=== PATIENT | male | born 1960 | race Caucasian/White ===

== ENCOUNTER 2019-02-13 22:45 | Inpatient (IN) | payer MEDICARE, MEDICAID ==
[~2019-02-13] VITALS: Ht 177.8 cm; Wt 102.5 kg
--- NOTE | 2019-02-13 23:00 | NUR ---
Dr. Suazo at bedside for MSE.
[2019-02-13] MEDS ORDERED: KETAMINE HCL 500 MG/10 ML INJ IM ONE (23:15)
[2019-02-13] MEDS ORDERED: KETAMINE HCL 500 MG/10 ML INJ ONE (23:18)
[2019-02-13 23:32] LABS: BASOPHILS % (AUTO) 0.5 % (0.0-2.0); EOSINOPHILS % (AUTO) 0.4 % (0.0-7.0); HEMATOCRIT 41.5 % (36.7-47.1); LYMPHOCYTES # (AUTO) 1.8 K/uL (20.0-40.0); LYMPHOCYTES % (AUTO) 20.6 % (20.5-51.5); MEAN CORPUSCULAR HEMOGLOBIN 28.3 uug (23.8-33.4); MEAN CORPUSCULAR HGB CONC 34 g/dL (32.5-36.3); MEAN CORPUSCULAR VOLUME 84.2 fL (73.0-96.2); MONOCYTES # (AUTO) 0.9 K/uL (2.0-10.0); MONOCYTES % (AUTO) 10.5 % (0.0-11.0); PLATELET COUNT (AUTO) 220 K/uL (152-348); RED BLOOD CELL COUNT(AUTO) 4.93 MIL/uL (4.06-5.63); WHITE BLOOD COUNT (AUTO) 8.8 K/uL (3.6-10.2)
[2019-02-13] MEDS ORDERED: ASCO-376 PO (23:32)
[2019-02-13] MEDS ORDERED: MULT-213 PO (23:32)
[2019-02-13] MEDS ORDERED: NA P133E RC (23:32)
[2019-02-13] MEDS ORDERED: BISA10SU61 RC (23:32)
[2019-02-13] MEDS ORDERED: MAGN400O6 PO (23:32)
[2019-02-13] MEDS ORDERED: FERR325T28 PO (23:32)
[2019-02-13] MEDS ORDERED: CRAN405C PO (23:32)
[2019-02-13] MEDS ORDERED: ZINC220C8 PO (23:32)
[2019-02-13] MEDS ORDERED: CALC-168 PO (23:32)
[2019-02-13] MEDS ORDERED: DOCU-141 PO (23:32)
[2019-02-13 23:48] LABS: ALANINE AMINOTRANSFERASE 62 U/L (16-63); ALKALINE PHOSPHATASE 55 U/L (50-136); ASPARTATE AMINOTRANSFERASE 46 U/L (15-37); BILIRUBIN,DIRECT 0.1 mg/dL (0.0-0.2); BILIRUBIN,TOTAL 0.3 mg/dL (0.2-1.0); CARBON DIOXIDE 27 mmol/L (21-32); CHLORIDE 105 mmol/L (98-107); CREATININE 1.3 mg/dL (0.6-1.3); GLUCOSE 120 mg/dL (74-106); POTASSIUM 3.9 mmol/L (3.5-5.1); TOTAL PROTEIN, SERUM 7.8 g/dL (6.4-8.2); UREA NITROGEN, BLOOD 28 mg/dL (7-18)
[2019-02-13 23:58] LABS: THYROID STIMULATING HORMONE 2.909 mIU/mL (0.358-3.740)
[2019-02-14 00:03] LABS: ETHANOL < 3 MG/DL (0-0)
[2019-02-14 00:13] LABS: *BILIRUBIN,URIN NEGATIVE (NEGATIVE); *CLARITY,URINE CLEAR (CLEAR); *COLOR,URINE YELLOW (YELLOW); *KETONES,URINE NEGATIVE (NEGATIVE); *UROBILINOGEN,URINE 0.2 E.U./dl (NORMAL); LEUKOCYTE ESTERASE ,URINE NEGATIVE (NEGATIVE); NITRITE, URINE NEGATIVE (NEGATIVE); PH,URINE 5.5 (5.0-8.0); UGLUCOSE NEGATIVE (NEGATIVE)
[2019-02-14 00:14] LABS: *BLOOD, URINE TRACE (NEGATIVE)
[2019-02-14] MEDS ORDERED: ACETAMINOPHEN 325 MG TABLET PO PRN (00:15)
[2019-02-14] MEDS ORDERED: MAGNESIUM HYDROXIDE 30 ML LIQUID UDC PO PRN (00:15)
[2019-02-14 00:20] LABS: BACTERIA,URINE NONE SEEN /HPF (NONE SEEN); RBC,URINE 0-3 /HPF (0-3); SQUAMOUS EPITHELIAL CELL,UR FEW /HPF (NONE SEEN); WBC,URINE 0-3 /HPF (0-3)
--- NOTE | 2019-02-14 00:36 | NUR ---
Pt wanted by research center partner[facility]ub[facility], and searched for contraband.
[2019-02-14 00:55] LABS: *AMPHETAMINE, URINE NEGATIVE (NEGATIVE); *BARBITURATE, URINE NEGATIVE (NEGATIVE); *CANNABINOID, URINE NEGATIVE (NEGATIVE); *COCCAINE, URINE NEGATIVE (NEGATIVE); *OPIATE, URINE NEGATIVE (NEGATIVE); *PHENCYCLIDINE SCREEN,URINE NEGATIVE (NEGATIVE)
--- NOTE | 2019-02-14 00:55 | NUR ---
Report given to Fletcher PAREKH U.
[2019-02-14] MEDS: ZOLPIDEM 5 MG TABLET PO PRN (01:54)
--- NOTE | 2019-02-14 02:21 | NUR ---
received to care, from the emergency room, on a 72 hour hold, for danger to others/gravely disabled, a transfer from [facility]. according to the hold, he has been extremely agitated and aggressive towards staff and residents, yelling, banging fists at nurses station and on glass doors, banging food trays around facility, and refusing to cooperate with staff, or take PRN medications to calm him down. upon arrival on the unit at 0130, he was agitated, even though he was given an IM injection of ketamine, in the emergency room. gait was unsteady. he was confused and disorganized, unable to provide much meaningful information. was alternating between laughing and crying. stated he was hearing things, but was unable to clarify, stating "they are good to me" he was malodorous, with soiled clothing. he was assited with a shower, and given some food. pt was advised and patients rights book was provided. PRN ambien was given at 0154. he was then put to bed, but got up, and was kneeling next to the bed, praying, and yelling. he was assited into the klever chair and placed at nurses station. as of 0230, he is now asleep. no distress noted. will continue to monitor closely.
[2019-02-14] MEDS: LORAZEPAM 0.5 MG TABLET PO PRN ×2 (02:59→09:00)
--- NOTE | 2019-02-14 02:59 | NUR ---
remains at nurses station, agitated and noisy, banging on table, talking to self, difficult to redirect. PRN ativan was given, at this time. will continue to monitor closely.
[2019-02-14 04:17] VITALS: BP 120/99
--- NOTE | 2019-02-14 07:25 | NUR ---
Receive patient in a Stanley-chair. slightly restless agitated talking, arguing with himself. Will continue with care plan.
[2019-02-14 07:30] VITALS: BP 119/68
--- NOTE | 2019-02-14 07:30 | NUR ---
slept 2 hours total. remains agitated, talking to self, appearing distracted by internal stimuli. refused AM lab draw. report given to oncoming shift.
[2019-02-14] MEDS: NICOTINE 21 MG/24HR PATCH TD SCH ×2 (09:00→09:03)
--- NOTE | 2019-02-14 09:25 | NUR ---
Patient increasingly agitated, restless yelling profanities to medical staff and other patient. Patient banging both hands on the chair despite been medicated for agitation.
[2019-02-14] MEDS ORDERED: OLANZAPINE 10 MG VIAL IM ONE (09:30)
--- NOTE | 2019-02-14 09:30 | NUR ---
Dr. Peterson called to be notified of patient's aggressive behavior, orders received and implemented.
--- NOTE | 2019-02-14 09:45 | NUR ---
Patient manage to release himself from Stanley-chair got naked in the hallway escorted to his room and contracted to follow commands.
[2019-02-14] MEDS ORDERED: LORAZEPAM 0.5 MG TABLET PO PRN (11:15)
[2019-02-14] MEDS: OLANZAPINE 5 MG TABLET PO SCH ×3 (11:15→20:05)
--- NOTE | 2019-02-14 11:27 | NUR ---
Patient refusing to take olanzapine stating "I don't need to take zyprexa, I'm not crazy all I'm is a drug addict in withdrawal, and I have the right to refuse., and get the "ff>>>>" out of my face".
[2019-02-14] MEDS ORDERED: BISACODYL 10 MG SUPP.RECT RC PRN (11:30)
--- NOTE | 2019-02-14 15:46 | NUR ---
At this time patient sleeping easily arousable to verbal command.
[2019-02-14 16:00] VITALS: BP 115/64
[2019-02-14] MEDS: DOCUSATE SODIUM 100 MG CAPSULE PO SCH (16:10)
--- NOTE | 2019-02-14 18:04 | NUR ---
At this time patient agitated, restless walking through the hallway, shouting & delusional. Patient reoriented and at this time agree to follow commands.
[2019-02-14 20:19] VITALS: BP 140/65
[2019-02-14] MEDS: DIVALPROEX ER 500 MG TAB.SR.24H PO SCH (20:43)
[2019-02-14] MEDS ORDERED: HALOPERIDOL LACTATE 5 MG/1 ML VIAL IM ONE (20:45)
[2019-02-14] MEDS ORDERED: diphenhydrAMINE 50 MG/1 ML VIAL IM ONE (20:45)
--- NOTE | 2019-02-14 20:53 | NUR ---
Patient noted to aggressive and verbally abusive toward staff. Patient walking up and down the hallway incessantly and yelling in a loud voice about different delusions stating that he isn't mentally unwell, but rather withdrawing from drugs. Patient yelling that he wants all of his clothes back, and that he doesn't want a gown because he isn't a woman. Patient refused 2100 dose of Depakote and PRN 1 mg Ativan PO. Zypreza PO given. MD process environmental technician notified of behavior and ordered Benadryl 25 mg and Haldol 5 mg IM. Security notified and on stand by alert in the room while nurses administered medications. Patient still agitated after administration. Will continue to monitor.
--- NOTE | 2019-02-15 06:36 | NUR ---
Patient slept on and off during the night. Pleasant this morning, with shower given. Addendum: 02/15/19 at 0642 by BALTAZAR LOWE RN slept 5 hours
[2019-02-15 07:30] VITALS: BP 129/46
[2019-02-15] MEDS: DOCUSATE SODIUM 100 MG CAPSULE PO SCH ×2 (08:18→17:52)
[2019-02-15] MEDS: OLANZAPINE 5 MG TABLET PO SCH ×2 (08:19→20:45)
[2019-02-15] MEDS: FERROUS SULFATE 325 MG TABEC PO SCH (08:19)
[2019-02-15] MEDS: NICOTINE 21 MG/24HR PATCH TD SCH (08:25)
--- NOTE | 2019-02-15 15:42 | NUR ---
Preliminary Discharge Plan/Discharge needs: Per hold, pt is a resident of [facility] [[address] [place] [address]; [phone]] but pt states that he is currently homeless and he �likes living in the streets.� He states, �I want to be homeless and be left alone.� Pt has no next of kin or emergency contact. Pt is ambulatory. Pt. would like to �return to the streets.� structural metal worker will plan to discuss placement options with pt and MD for discharge planning. structural metal worker will continue to work on a safe and proper discharge plan for pt.
[2019-02-15 19:46] VITALS: BP 125/75
[2019-02-15] MEDS: LORAZEPAM 1 MG TABLET PO PRN (19:47)
[2019-02-15] MEDS: DIVALPROEX ER 500 MG TAB.SR.24H PO SCH (20:45)
[2019-02-15] MEDS: ZOLPIDEM 5 MG TABLET PO PRN (22:07)
--- NOTE | 2019-02-15 22:30 | NUR ---
received to care, pacing the hallway, talking loudly, appearing distracted by internal stimuli. compliant with his medications, and with staff requests/ redirection. no interactions noted with peers. PRN ativan was given at 1946, for agitation. he seemed slightly calmer within an hour, and took his bedtime medications. at 2206, he was given ambien, for insomnia, as he was still agitated and yelling intermittently. as of 2229, he appears asleep, in bed. no distress noted. will continue to monitor closely.
[2019-02-16] MEDS: LORAZEPAM 1 MG TABLET PO PRN ×3 (02:26→20:34)
--- NOTE | 2019-02-16 02:26 | NUR ---
pt has been awake for the last few minutes, coming to the desk, asking for multiple snacks, which were given. he remains restless, standing at nurses desk. PRN ativan was given at this time, and he went back to bed. will continue to monitor closely.
--- NOTE | 2019-02-16 03:00 | NUR ---
appears to be asleep. no distress noted.
--- NOTE | 2019-02-16 06:00 | NUR ---
slept 5.5 hours, total. is now awake. remains labile and easily agitated. needs frequent redirection, which he is responding to, well, this morning. assisted with am care, and shower. currently watching tv with another male peer. will continue to monitor closely.
[2019-02-16 07:30] VITALS: BP 94/60
[2019-02-16] MEDS: FERROUS SULFATE 325 MG TABEC PO SCH (08:36)
[2019-02-16] MEDS: OLANZAPINE 5 MG TABLET PO SCH ×2 (08:36→20:00)
[2019-02-16] MEDS: DOCUSATE SODIUM 100 MG CAPSULE PO SCH ×2 (08:36→17:19)
[2019-02-16] MEDS: NICOTINE 21 MG/24HR PATCH TD SCH (08:37)
[2019-02-16] MEDS ORDERED: OLANZAPINE 10 MG VIAL IM ONE (13:15)
[2019-02-16] MEDS: BENZOCAINE/MENTH/CETYLPYRD LOZENGE MM PRN (14:54)
[2019-02-16] MEDS: GUAIFENESIN/DEXTROMETHORPHAN 5 ML UDC PO PRN (14:54)
--- NOTE | 2019-02-16 19:21 | NUR ---
patient B/P low 87/52, HR- 69, patient denies dizziness or blurred vision. Encouraged increase oral fluids. Endorsed to fixer boarding room for further observation. Patient had hi antihypertesion medications this morning.
[2019-02-16 19:45] VITALS: BP 91/60
[2019-02-16] MEDS: DIVALPROEX ER 500 MG TAB.SR.24H PO SCH (20:00)
[2019-02-16] MEDS: ZOLPIDEM 5 MG TABLET PO PRN (21:33)
[2019-02-17] MEDS: BENZOCAINE/MENTH/CETYLPYRD LOZENGE MM PRN ×3 (04:04→22:49)
[2019-02-17] MEDS: GUAIFENESIN/DEXTROMETHORPHAN 5 ML UDC PO PRN ×2 (04:04→10:05)
--- NOTE | 2019-02-17 04:14 | NUR ---
Patient received while standing near nursing station. No distress noted. AAO x4. Denies SI. Easily get angry and agitated. Talking very loudly and aggressively. Compliant with medication and care. All due medication given and well tolerated. PRN Ativan 1 mg was given and effective in making him calm. Had a good sleep with help of Ambien 5 mg. At 0400 am asked for Robitussin and Cepacol for his cough and sore throat. will continue to monitor and will endorse to the day shift nurse accordingly.
[2019-02-17 07:30] VITALS: BP 110/70
[2019-02-17] MEDS: NICOTINE 21 MG/24HR PATCH TD SCH (08:57)
[2019-02-17] MEDS: DOCUSATE SODIUM 100 MG CAPSULE PO SCH ×2 (08:57→17:00)
[2019-02-17] MEDS: OLANZAPINE 5 MG TABLET PO SCH ×2 (08:58→20:01)
[2019-02-17] MEDS: FERROUS SULFATE 325 MG TABEC PO SCH (08:58)
[2019-02-17] MEDS ORDERED: OLANZAPINE 10 MG VIAL IM ONE (14:45)
--- NOTE | 2019-02-17 14:45 | NUR ---
PT NOTED TO BE HIGHLY AGITATED, PARANOID, AND DELUSIONAL. PT NOTED ESCALATING IN BEHAVIOR, AGITATED AND AGGRESSIVE. MAKING MULTIPLE NON SENSICAL RAMBLINGS. BELIEVES HE IS CRYSTAL. STATED "I'M GOING TO BEAT ALL YOU MOTHER FUCKERS UP". STAFF ATTEMPTING TO DEESCALATE SITUATION, PT OPENS NURSES STATION DOOR, POSTURING WITH A FIST STATING "I'M GONNA FUCKING KILL ALL OF YOU." SECURITY CALLED. DR. WINTERS CALLED AND NOTIFIED. ORDERED ZYPREXA 10MG PO IM. NOTED AND WILL CARRY OUT.
--- NOTE | 2019-02-17 18:57 | NUR ---
Pt received this morning, able to make needs known. Compliant with routine morning medications, except Colace refused. Pt reports regular BM pattern. Pt able to CFS, denies SI/HI/AH/VH. Pt demeanor has calmed down this this afternoon's episode. Pt has not shown any violent behavior or verbal threats since. Pt refuses VS. Will continue to monitor for safety and endorse to oncoming welder 2nd shift nurse.
[2019-02-17] MEDS: DIVALPROEX ER 500 MG TAB.SR.24H PO SCH (20:01)
[2019-02-17 20:05] VITALS: BP 107/60
[2019-02-18] MEDS: MAG HYDROX/AL HYDROX/SIMETH 30 ML LIQUID UDC PO PRN (03:28)
[2019-02-18 07:30] VITALS: BP 118/74
[2019-02-18] MEDS: LORAZEPAM 1 MG TABLET PO PRN (08:11)
[2019-02-18] MEDS: FERROUS SULFATE 325 MG TABEC PO SCH (08:30)
[2019-02-18] MEDS: NICOTINE 21 MG/24HR PATCH TD SCH (08:30)
[2019-02-18] MEDS: OLANZAPINE 5 MG TABLET PO SCH ×2 (08:30→20:02)
[2019-02-18] MEDS: DOCUSATE SODIUM 100 MG CAPSULE PO SCH ×2 (08:30→17:29)
[2019-02-18 15:13] VITALS: BP 139/66
[2019-02-18] MEDS: BENZOCAINE/MENTH/CETYLPYRD LOZENGE MM PRN (18:53)
[2019-02-18] MEDS: GUAIFENESIN/DEXTROMETHORPHAN 5 ML UDC PO PRN (18:53)
[2019-02-18 20:00] VITALS: BP 137/71
[2019-02-18] MEDS: DIVALPROEX ER 500 MG TAB.SR.24H PO SCH (20:02)
[2019-02-19] MEDS: GUAIFENESIN/DEXTROMETHORPHAN 5 ML UDC PO PRN ×2 (05:27→16:51)
[2019-02-19] MEDS: BENZOCAINE/MENTH/CETYLPYRD LOZENGE MM PRN ×2 (05:27→16:51)
[2019-02-19 07:30] VITALS: BP 106/68
[2019-02-19] MEDS: OLANZAPINE 5 MG TABLET PO SCH ×2 (08:19→20:31)
[2019-02-19] MEDS: NICOTINE 21 MG/24HR PATCH TD SCH (08:19)
[2019-02-19] MEDS: DOCUSATE SODIUM 100 MG CAPSULE PO SCH ×2 (08:19→16:47)
[2019-02-19] MEDS: FERROUS SULFATE 325 MG TABEC PO SCH (08:19)
[2019-02-19] MEDS: MAG HYDROX/AL HYDROX/SIMETH 30 ML LIQUID UDC PO PRN ×2 (15:02→23:01)
[2019-02-19 16:02] VITALS: BP 129/66
[2019-02-19 20:03] VITALS: BP 115/71
[2019-02-19] MEDS ORDERED: DIVALPROEX ER 250 MG TAB.SR.24H PO SCH (21:00)
[2019-02-19] MEDS ORDERED: DIVALPROEX ER 500 MG TAB.SR.24H PO SCH (21:00)
[2019-02-20] MEDS: ZOLPIDEM 5 MG TABLET PO PRN (00:38)
[2019-02-20 08:04] VITALS: BP 110/70
[2019-02-20] MEDS: FERROUS SULFATE 325 MG TABEC PO SCH (08:26)
[2019-02-20] MEDS: DOCUSATE SODIUM 100 MG CAPSULE PO SCH (08:26)
[2019-02-20] MEDS: NICOTINE 21 MG/24HR PATCH TD SCH (08:26)
[2019-02-20] MEDS: OLANZAPINE 5 MG TABLET PO SCH (08:26)
--- NOTE | 2019-02-20 09:55 | NUR ---
Discharge Note: Patient will be discharged to [facility] [[address] [place] [address]; ]. Labor Relations Supervisor spoke with Brcue, Insole Presser, who stated facility can accept patient today. Please arrange ambulance for this patient by 2:00pm. Patient is AxOx4, denies suicidal ideation, is able to plan for self-care, and is agreeable with discharge plan. There is no next of kin identified in patient�s records to notify of discharge plan. However, patient�s workers' compensation hearings officer � El Garcia [[phone]] was notified of patient�s discharge plan. Patient will follow up with Dr. Manuel (Rehabilitation Physician) and Dr. Almeida (Psychiatrist) at [facility]. Patient was given outpatient mental health resources to [facility] , [facility] , and the National Suicide Prevention Lifeline .
--- NOTE | 2019-02-20 11:56 | NUR ---
FIREARMS REPORT: [employer] completed and submitted a [employer] firearms report for [address] and [employer] Disability certification. A copy of report has been placed in patient chart.
[2019-02-20] MEDS: MAG HYDROX/AL HYDROX/SIMETH 30 ML LIQUID UDC PO PRN (14:02)
--- NOTE | 2019-02-20 14:30 | NUR ---
1230 [facility] SHAMA Ybarra the admission nurse and report given regarding patient will be discharged back to the facility. Also, Nurse informed and verbalized understanding of medications to continue upon hospital discharged. 1410 Patient discharged ,picked up by ambulance alert and ox4, denies SI/HI. no delusion. No a/v hallucination noted.
== END 2019-02-20 14:10 | DRG 885 ==
LOC: ER 22:45 → GPS 02-14 00:44
PROVIDERS: ADMIT Psychiatry & Neurology Psychiatry; ATTEND Nurse Practitioner Acute Care
DX: F25.0 Schizoaffective disorder, bipolar type (principal); F17.210 Nicotine dependence, cigarettes, uncomplicated; J44.9 Chronic obstructive pulmonary disease, unspecified; R74.0 Nonspecific elevation of levels of transaminase and lactic acid dehydrogenase [LDH]; E66.9 Obesity, unspecified; Z68.32 Body mass index [BMI] 32.0-32.9, adult; Z79.899 Other long term (current) drug therapy; R79.89 Other specified abnormal findings of blood chemistry
CPT/HCPCS: 36415; 71045; 80164; 80307; 84443; 85025; 93005; A4217; A4663; C1758; G0480; G0500; J1200; J1630; J2358; J3490